=== PATIENT | male | born 1950 | race Caucasian/White ===

== ENCOUNTER 2016-11-09 05:30 | Observation (INO) | payer MEDICAID, OTHER ==
[2016-11-03 14:13] LABS: BASOPHILS % (AUTO) 0.7 % (0.0-2.0); EOSINOPHILS % (AUTO) 1.5 % (1.0-6.0); HEMATOCRIT 44.5 % (41-53); HEMOGLOBIN 14.4 g/dL (13.5-17.5); LYMPHOCYTES # (AUTO) 2.5 K/uL (1.0-4.8); LYMPHOCYTES % (AUTO) 29.4 % (22.0-44.0); MEAN CORPUSCULAR HGB CONC 32.4 G/dL (31.0-37.0); MEAN CORPUSCULAR VOLUME 92 fL (80-100); MONOCYTES # (AUTO) 0.6 K/uL (0.1-1.0); NEUTROPHILS # (AUTO) 5.2 K/uL (1.8-7.7); NEUTROPHILS % (AUTO) 61.4 % (40.0-70.0); PLATELET COUNT (AUTO) 335 K/uL (150-450); RED BLOOD CELL COUNT(AUTO) 4.81 MIL/uL (4.50-5.90); WHITE BLOOD COUNT (AUTO) 8.5 K/uL (4.5-11.0)
[2016-11-03 14:22] LABS: ANION GAP 7 mmol/L (8-16); CALCIUM, TOTAL 8.3 mg/dL (8.8-10.5); CARBON DIOXIDE 30 mmol/L (22-29); CHLORIDE 103 mmol/L (98-107); CREATININE 0.83 mg/dL (0.60-1.30); GLOMERULAR FILTR. RATE CALC > 60 mL/min (>60); POTASSIUM 3.9 mmol/L (3.5-5.1); SODIUM SERUM 140 mmol/L (136-145); UREA NITROGEN, BLOOD 9 mg/dL (7-18)
[2016-11-03 14:28] LABS: ALANINE AMINOTRANSFERASE 29 U/L (12-78); ALBUMIN 3.6 g/dL (3.4-5.0); ASPARTATE AMINOTRANSFERASE 26 U/L (15-37); BILIRUBIN,TOTAL 0.4 mg/dL (0.1-1.0); TOTAL PROTEIN, SERUM 7.7 g/dL (6.4-8.2)
[2016-11-03 14:30] LABS: PROTHROMBIN TIME 10.2 SEC (9.4-11.6)
[~2016-11-09] VITALS: Ht 162.6 cm; Wt 70.5 kg
[2016-11-09] MEDS ORDERED: SODIUM CHLORIDE 0.9% 1,000 ML IV ONE ×2 (05:51→06:00)
[2016-11-09] MEDS ORDERED: CeFAZolin 2 GM/DEXTROSE 50 ML IV ONE ×2 (05:52→06:00)
[2016-11-09] MEDS ORDERED: ZOLP10 PO (06:36)
[2016-11-09] MEDS ORDERED: HYDR-309 PO (06:36)
[2016-11-09] MEDS ORDERED: LIDOCAINE HCL/PF 1% 30 ML VIAL ONE (06:44)
[2016-11-09] MEDS ORDERED: BUPIVACAINE HCL/PF 0.5% 30 ML VIAL ONE (06:44)
[2016-11-09] MEDS ORDERED: VANCOMYCIN HCL 1 GM/VIAL ONE (06:44)
[2016-11-09] MEDS ORDERED: ACETAMINOPHEN 1000 MG/ISO-OSM 100 ML IV ONE (06:54)
[2016-11-09] MEDS: ACETAMINOPHEN 1000 MG/ISO-OSM 100 ML IV SCH ×3 (06:57→19:21)
[2016-11-09] MEDS ORDERED: PROMETHAZINE HCL 25 MG/ML VIAL IM PRN (07:00)
[2016-11-09] MEDS ORDERED: CYCLOBENZAPRINE HCL 10 MG TABLET PO PRN (07:00)
[2016-11-09] MEDS ORDERED: FentaNYL CITRATE-PF 100 MCG/2 ML VIAL IVP PRN (07:00)
[2016-11-09] MEDS ORDERED: ONDANSETRON HCL 4 MG/2 ML VIAL IVP PRN ×2 (07:00→09:30)
[2016-11-09] MEDS ORDERED: ZOLPIDEM TARTRATE 5 MG TABLET PO PRN (07:00)
[2016-11-09] MEDS ORDERED: MEPERIDINE-PF 25 MG/ML SYRINGE IVP PRN (07:00)
[2016-11-09] MEDS ORDERED: HYDROmorphone 2 MG/ML SYRINGE IVP PRN (07:00)
[2016-11-09] MEDS: OXYGEN THERAPY IH SCH ×2 (08:00→20:00)
[2016-11-09] MEDS ORDERED: GUM MASTIC/STORAX/MSAL/ALCOHOL LIQUID 0.67 ML VIAL TP ONE (08:59)
[2016-11-09] MEDS ORDERED: SODIUM CHLORIDE 0.9% 500 ML IV ONE (09:16)
[2016-11-09] MEDS ORDERED: ZOLPIDEM TARTRATE 10 MG TABLET PO PRN (09:30)
[2016-11-09] MEDS ORDERED: MAG HYDROX/AL HYDROX/SIMETH 30 ML SUSP UDCUP PO PRN (09:30)
[2016-11-09] MEDS ORDERED: DiphenhydrAMINE HCL 50 MG/ML VIAL IVP PRN (09:30)
[2016-11-09] MEDS ORDERED: BACITRACIN 28.4 GM OINTMENT TP PRN (09:30)
[2016-11-09 10:25] VITALS: BP 125/91
[2016-11-09] MEDS: HYDROmorphone 2 MG/ML SYRINGE IVP PRN ×3 (11:54→18:22)
[2016-11-09] MEDS ORDERED: KETAMINE HCL 50 MG/ML 10 ML VIAL IVP ONE (12:00)
[2016-11-09] MEDS ORDERED: MIDAZOLAM HCL 2 MG/2 ML VIAL IVP ONE (12:00)
[2016-11-09] MEDS ORDERED: DEXAMETHASONE SOD PHOS 4 MG/ML VIAL IVP ONE (12:00)
[2016-11-09] MEDS ORDERED: FentaNYL CITRATE-PF 250 MCG/5 ML VIAL IVP ONE (12:00)
[2016-11-09 12:08] VITALS: BP 146/89
[2016-11-09 14:40] VITALS: BP 144/97
[2016-11-09 17:30] VITALS: BP 139/81
[2016-11-09 19:46] VITALS: BP 139/85
[2016-11-09] MEDS: DOCUSATE SODIUM 100 MG CAPSULE PO SCH (19:51)
[2016-11-10] MEDS: ACETAMINOPHEN 1000 MG/ISO-OSM 100 ML IV SCH ×2 (00:30→06:58)
[2016-11-10 00:33] VITALS: BP 124/64
[2016-11-10 03:08] VITALS: BP 117/70
[2016-11-10] MEDS: HYDROmorphone 2 MG/ML SYRINGE IVP PRN (03:08)
[2016-11-10 05:25] LABS: BASOPHILS % (AUTO) 0.2 % (0.0-2.0); EOSINOPHILS % (AUTO) 0 % (1.0-6.0); HEMATOCRIT 42.1 % (41-53); HEMOGLOBIN 13.7 g/dL (13.5-17.5); LYMPHOCYTES # (AUTO) 1.8 K/uL (1.0-4.8); LYMPHOCYTES % (AUTO) 10.5 % (22.0-44.0); MEAN CORPUSCULAR HEMOGLOBIN 29.7 pg (26.0-34.0); MEAN CORPUSCULAR HGB CONC 32.4 G/dL (31.0-37.0); MEAN CORPUSCULAR VOLUME 92 fL (80-100); MONOCYTES # (AUTO) 1.5 K/uL (0.1-1.0); MONOCYTES % (AUTO) 8.7 % (2.0-9.0); NEUTROPHILS % (AUTO) 80.6 % (40.0-70.0); PLATELET COUNT (AUTO) 319 K/uL (150-450); RED BLOOD CELL COUNT(AUTO) 4.59 MIL/uL (4.50-5.90); WHITE BLOOD COUNT (AUTO) 17.4 K/uL (4.5-11.0)
[2016-11-10 06:01] LABS: ANION GAP 8 mmol/L (8-16); CALCIUM, TOTAL 8.1 mg/dL (8.8-10.5); CARBON DIOXIDE 28 mmol/L (22-29); CHLORIDE 101 mmol/L (98-107); GLOMERULAR FILTR. RATE CALC > 60 mL/min (>60); POTASSIUM 3.9 mmol/L (3.5-5.1); SODIUM SERUM 137 mmol/L (136-145); UREA NITROGEN, BLOOD 9 mg/dL (7-18)
[2016-11-10] MEDS: OXYGEN THERAPY IH SCH (08:00)
[2016-11-10 08:05] VITALS: BP 118/70
[2016-11-10] MEDS: DOCUSATE SODIUM 100 MG CAPSULE PO SCH (08:29)
[2016-11-10 11:55] VITALS: BP 137/86
[2016-11-10] MEDS ORDERED: HYDROCODONE/ACETAMINOPHEN 10-325 MG TABLET PO PRN (13:00)
[2016-11-10 15:24] LABS: APPEARANCE,URINE CLEAR (CLEAR); GLUCOSE, URINE (UA) NEGATIVE (NEGATIVE); KETONES,URINE NEGATIVE (NEGATIVE); LEUKOCYTE ESTERASE ,URINE NEGATIVE (NEGATIVE); OCCULT BLOOD,URINE NEGATIVE (NEGATIVE); PH,URINE 6.5 (5.0-8.0); PROTEIN,URINE NEGATIVE (NEGATIVE)
[2016-11-10 15:56] LABS: RBC,URINE None Seen /HPF (0-2); WBC,URINE 0-2 /HPF (0-5)
[2016-11-10 15:58] VITALS: BP 132/85
[2016-11-10] MEDS ORDERED: GLYCOPYRROLATE 0.2 MG/ML VIAL IM ONE (18:20)
[2016-11-10] MEDS ORDERED: SUCCINYLCHOLINE CHLORIDE 20 MG/ML 10 ML VIAL IVP ONE (18:20)
[2016-11-10] MEDS ORDERED: EPHEDrine SULFATE 50 MG/ML VIAL IM ONE (18:20)
[2016-11-10] MEDS ORDERED: ROCURONIUM BROMIDE 10 MG/ML 5 ML VIAL IVP ONE (18:20)
[2016-11-10] MEDS ORDERED: LIDOCAINE HCL/PF 2% 5 ML VIAL INJ ONE (18:20)
[2016-11-10] MEDS ORDERED: 0.9% SODIUM CHLORIDE 10 ML VIAL IVP ONE (18:20)
[2016-11-10] MEDS ORDERED: PROPOFOL 1% 20 ML VIAL IVP ONE (18:20)
[2016-11-10] MEDS ORDERED: NEOSTIGMINE METHYLSULFATE 1 MG/ML 10 ML VIAL IVP ONE (18:20)
== END 2016-11-10 18:21 | disposition home or self-care (01) ==
LOC: 4E 05:30 → INTOOBSV 05:30
PROVIDERS: ADMIT Orthopaedic Surgery Orthopaedic Surgery of the Spine; ATTEND Orthopaedic Surgery Orthopaedic Surgery of the Spine
DX: M48.02 Spinal stenosis, cervical region (principal); D72.829 Elevated white blood cell count, unspecified; M19.90 Unspecified osteoarthritis, unspecified site
CPT/HCPCS: 20930; 22551; 22552; 36415 ×2; 80048; 80053; 81001; 85025 ×2; 85610; 85730; 87081; 88300; 93005; 96374; 96375; 96376 ×2; 97110; 97116; 97161; 97166; 97530; 97535; C1713; C1768; G0238; G0378 ×2; J0131 ×2; J0330; J0690; J1100; J1170 ×2; J2250; J2704; J3010; J3490 ×5; J7030; J7040; J3370